=== PATIENT | male | born 1945 | race Caucasian/White ===

== ENCOUNTER → 2021-07-05 | Outpatient (CLI) | payer OTHER | LOC: HEART 5 06-23 08:45 | DX: I20.9 Angina pectoris, unspecified (principal); I25.10 Atherosclerotic heart disease of native coronary artery without angina pectoris | CPT/HCPCS: 78452; 93306; A9502; J2785 ==

== ENCOUNTER → 2021-07-22 | Outpatient (CLI) | payer OTHER ==
[2021-07-22 09:57] LABS: HEMOGLOBIN 13.9 gm/dl (14.0-17.5); RED BLOOD COUNT 4.51 M/UL (4.20-5.50); WHITE BLOOD COUNT 5.7 K/UL (4.5-11.0)
== END ==
LOC: LAB 09:06
PROVIDERS: Internal Medicine Cardiovascular Disease
DX: I20.9 Angina pectoris, unspecified (principal); I25.10 Atherosclerotic heart disease of native coronary artery without angina pectoris; I10 Essential (primary) hypertension; R94.39 Abnormal result of other cardiovascular function study; J98.11 Atelectasis
CPT/HCPCS: 36415; 71046; 80048; 85025

== ENCOUNTER → 2021-07-26 | Outpatient (CLI) | payer OTHER ==
[~2021-07-26] MED LIST: ASPIRIN CHEWABL81 MG PO; ATORVASTATIN CA40 MG PO; ELIQUIS5 MG PO; FENOFIBRATE160 MG PO; FLOMAX0.4 MG PO; GABAPENTIN600 MG PO; GLUCOTROL 10 MG10 MG PO; HYDROCODON-ACE1 EAC6 PO; ISOSORBIDE MONO30 MG PO; LASIX 40 MG TAB40 MG PO; LEVEMIR FL100 UNIT/1 SQ; LISINOPRIL30 MG PO; NITROGLYCERIN0.4 MG SL; NORVASC5 MG PO; NOVOLOG FL100 UNIT/1 INJ; OMEPRAZOLE20 M1 PO; SOTALOL AF80 MG PO
== END ==
LOC: CATH 07:01
DX: I25.119 Atherosclerotic heart disease of native coronary artery with unspecified angina pectoris (principal); I48.0 Paroxysmal atrial fibrillation; I47.2 Ventricular tachycardia; I10 Essential (primary) hypertension; E11.9 Type 2 diabetes mellitus without complications; E78.5 Hyperlipidemia, unspecified; Z87.891 Personal history of nicotine dependence; Z79.01 Long term (current) use of anticoagulants; Z79.4 Long term (current) use of insulin; Z79.899 Other long term (current) drug therapy
CPT/HCPCS: 82962; 99152; C1769; C1894; J1644; J2250; J3010; J7030; Q9965